=== PATIENT | female | born 1965 | race Caucasian/White ===

== ENCOUNTER → 2016-12-03 | Outpatient (CLI) | payer OTHER ==
[~2016-12-03] MED LIST: ALBUTEROL17 G1; ALLERGY RELIEF10 MG PO; AMITIZA8 MCG PO; B COMPLEX1 CA1 PO; CALCIUM + D 6001 TA1 PO; CALCIUM + VITAM1 TAB PO; CIPRO PO; CYANOCOBALAM1000 MCG PO; CYMBALTA PO; DIFLUCAN100 MG PO; FIBER LAXATIVE500 MG; FOLIC ACID PO; LAMISIL PO; LITHIUM PO; LYRICA75 MG PO; MAGNESIUM500 MG PO; MIRAPEX0.25 MG PO; MUCINEX DM ER1 EAC1 PO; NEURONTIN100 MG PO; OMEPRAZOLE20 M2 PO; ONE DAILY WOME0.4 MG PO; PHENERGAN25 MG; PRAMIPEXOLE DI0.5 MG PO; PRILOSEC20 MG DOB; PROAIR HFA8.5 GM; PROMETHAZINE HC25 MG PO; REFRESH5 ML OP; RELPAX40 MG PO; REMERON15 MG PO; RESTASIS32 EA OP; SERTRALINE HCL50 MG PO; SUMATRIPTAN SUC50 MG PO; TYLOX 5-500 CA1 EACH PO; VIBRAMYCIN100 M1 PO; VITAMIN B-1000 MCG/1 IJ; ZYRTEC PO; [UNRECOGNIZED DRUG - OTHER] PO
--- NOTE | ~2016-12-03 | MR17 ---
[facility] A Service of [facility] RADIOLOGY TEXT RESULTS PATIENT: CLIFTON ALDANA LOCATION: [facility] : 65 UNIT #: [id number] AGE: [address]: Darwin Venegas II, MD SEX: F ORDER DR: [id number] [facility] [address] [place], [place] [address] [id number] MR#: [id number] Acc #: [id number] NAME: CLIFTON ALDANA : 1965 SEX: F STUDY DATE/TIME: 12/03/2016 19:24 UNIT: [facility] ROOM: STUDY DESCRIPTION: MR Brain WWo Contrast Attending Physician: Darwin Venegas II., M.D. Ordering Physician: Darwin Venegas II., M.D. Primary Care Physician: Generic Doctor Not In System MRI CENTER REPORT This report is preliminary unless electronic signature is present. EXAM MRI of the brain with and without contrast, dated 12/03/2016. COMPARISON CT of head without contrast, dated 01/29/2016. HISTORY Headaches in the mid-anterior head, memory loss for 5 months. 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 FINDINGS Multisequence, multiplanar imaging of the brain was obtained with and without contrast. 13 mL of MultiHance was administered intravenously. No acute stroke, space-occupying mass, mass effect, midline shift or hydrocephalus. Punctate tiny few hyperintense T2 nonspecific nonenhancing lesions are noted in the left frontal white matter. There is diffuse mild age appropriate parenchymal volume loss. No acute abnormality. Thick slices through the sella with the pituitary gland, pineal region do not demonstrate any significant abnormality. IMPRESSION 1. Punctate tiny few nonspecific, nonenhancing hyperintense T2 signal lesion is noted in the left frontal white matter. They are very subtle and are of clinical significance but benign appearing. They are nonspecific and could be related to white matter lesions like minimal chronic microvascular ischemic change or migraine, based on statistics. Correlate clinically. STAT * RESULT [facility] A Service of [facility] RADIOLOGY TEXT RESULTS PATIENT: CLIFTON ALDANA [facility] UN[facility] #: [id number] AGE: [address]: Darwin Venegas II, MD SEX: F ORDER DR: Dictated by... Waylon Duncan M.D. THIS IS AN ELECTRONICALLY VERIFIED REPORT Waylon Duncan M.D. at 12/05/2016 12:51 PM CPR/jt TD: 12/04/2016 18:03 JOB #: [id number] MRI CENTER REPORT Page 1 of 1 COPY
== END | disposition home or self-care (01) ==
LOC: CMRI 18:50
DX: R41.3 Other amnesia (principal); R93.0 Abnormal findings on diagnostic imaging of skull and head, not elsewhere classified
CPT/HCPCS: 70553; A9577